=== PATIENT | female | born 1990 | race Hispanic/Latino ===

== ENCOUNTER 2022-06-06 17:21 | Emergency (ER) | payer SELFPAY ==
[~2022-06-06] VITALS: Ht 157.5 cm; Wt 61.2 kg
[~2022-06-06 17:21] MED LIST: BIRTH CONTROL
[2022-06-06 17:53] LABS: CLARITY,URINE SL CLOUDY (CLEAR); KETONES,URINE 1+ (NEGATIVE); LEUKOCYTE ESTERASE ,URINE LARGE (NEGATIVE); NITRITE,URINE NEGATIVE (NEGATIVE); PROTEIN,URINE DIPSTICK 2+ (NEGATIVE); URINE UROBILINOGEN 0.2 mg/dL (0.2 - 1)
[2022-06-06 17:54] LABS: COLOR,URINE RED (YELLOW)
[2022-06-06 18:05] LABS: BACTERIA,URINE MANY /HPF; EPITHELIAL CELLS,URINE MODERATE /LPF; RBC,URINE >50 /HPF (0-5); WBC,URINE (MAN) >50 /HPF (0-5)
[2022-06-06] MEDS ORDERED: PYRIDIUM200 MG PO (18:40)
[2022-06-06] MEDS ORDERED: CEFDINIR300 MG PO (18:40)
== END 2022-06-06 19:09 | disposition home or self-care (01) ==
LOC: ER 17:33
DX: R10.30 Lower abdominal pain, unspecified (principal); N39.0 Urinary tract infection, site not specified; R30.0 Dysuria; K59.09 Other constipation
CPT/HCPCS: 81001; 81025; 87086; 87186; 99282